=== PATIENT | male | born 2000 | race Caucasian/White ===

== ENCOUNTER 2023-03-23 06:51 | Emergency (ER) | payer MEDICAID, OTHER ==
[2023-03-23 07:03] VITALS: BP 142/105; PULSE 76; O2SAT 96
--- NOTE | 2023-03-23 07:32 | ERPHSYRPT ---
- History of Present Illness Time Seen by Provider: 03/23/23 07:22 Source: patient Exam Limitations: no limitations Patient Subjective Stated Complaint: pt here for a sore throat for a week now, no fever, took tylenol and advil at 0530 this am. Triage Nursing Assessment: pt alert, resp easy, walked in, skin w.d.p. no drooling, throat red, Physician History: This is a 22-year-old white male patient who has had a sore throat for approximately 1 week. He has no known exposures to individuals with similar symptoms or with the diagnosis of flu of any type. He does not have chest pain. He has not having shortness of breath. He does not have a cough. He has no abdominal pain. He has had no nausea vomiting or diarrhea. He has not had a fever. Timing/Duration: week(s) (1) Cough Quality/Degree: no cough Possible Cause: chronic episodes Modifying Factors: Improves With: nothing Associated Symptoms: sore throat, No fever, No chest pain/soreness, No cough, No earache, No shortness of breath Allergies/Adverse Reactions: No Known Drug Allergies Allergy (Unverified 03/23/23 07:03) Hx Tetanus, Diphtheria Vaccination/Date Given: No Hx Influenza Vaccination/Date Given: No Hx Pneumococcal Vaccination/Date Given: No Travel Risk - International Travel Have you traveled outside of the country in past 3 weeks: No - Coronavirus Screening Are you exhibiting any of the following symptoms?: No - Vaccine Status Have you recieved a Covid-19 vaccination: No - Review of Systems Constitutional: No Symptoms Eyes: No Symptoms Ears, Nose, & Throat: Throat Pain Respiratory: No Symptoms Cardiac: No Symptoms Abdominal/Gastrointestinal: No Symptoms Genitourinary Symptoms: No Symptoms Musculoskeletal: No Symptoms Skin: No Symptoms Neurological: No Symptoms Psychological: No Symptoms Endocrine: No Symptoms Hematologic/Lymphatic: No Symptoms Immunological/Allergic: No Symptoms All Other Systems: Reviewed and Negative - Past Medical History Pertinent Past Medical History: No - Past Surgical History Past Surgical History: No - Social History Smoking Status: Never smoker Exposure to second hand smoke: No Drug Use: none Patient Lives Alone: No - Nursing Vital Signs Nursing Vital Signs: Initial Vital Signs Temperature 97.3 F 03/23/23 07:02 Pulse Rate 76 03/23/23 07:02 Respiratory Rate 18 03/23/23 07:02 Blood Pressure 142/105 03/23/23 07:02 O2 Sat by Pulse Oximetry 96 03/23/23 07:02 Pain Scale Pain Intensity 7 - Physical Exam General Appearance: no apparent distress, alert Eye Exam: PERRL/EOMI, eyes nml inspection Ears, Nose, Throat Exam: moist mucous membranes, pharyngeal erythema Neck Exam: normal inspection, non-tender, supple, full range of motion Respiratory Exam: normal breath sounds, lungs clear, No chest tenderness, No respiratory distress Cardiovascular Exam: regular rate/rhythm, normal heart sounds, normal peripheral pulses Gastrointestinal/Abdomen Exam: soft, normal bowel sounds, No tenderness Rectal Exam: not done Extremity Exam: normal inspection, normal range of motion, pelvis stable Neurologic Exam: alert, oriented x 3, cooperative, crop scout II-XII nml as tested, normal mood/affect, nml cerebellar function, nml station & gait, sensation nml Skin Exam: normal color, warm, dry Lymphatic Exam: No adenopathy SpO2 Interpretation: normal SpO2: 96 O2 Delivery: Room Air - Course Nursing assessment & vital signs reviewed: Yes Ordered Tests: Medication Summary Generic Name Dose Route Start Last Admin Trade Name Newtonq PRN Reason Stop Dose Admin Hydrocodone Bitart/Acetaminophen 10 ml 03/23/23 07:39 Hydrocodone/Acetaminophen 5 Ml Udcup PO 03/23/23 07:40 STAT STA Ceftriaxone Sodium 1,000 mg 03/23/23 07:39 Ceftriaxone Sodium 1000 Mg Inj Vial IM 03/23/23 07:40 STAT ONE Methylprednisolone Sodium 0 mg 03/23/23 07:39 Succinate 125 mg/ Sterile IM 03/23/23 07:40 Water 2 ml STAT ONE - Progress Progress: unchanged Air Movement: good Progress Note: 03/23/23 07:34 This patient's medical issue is 1 of low complexity. The level of complexity and the work-up performed is based on review of the patient's past medical history, review of the patient's medication list, review of the patient's drug allergy list, history of present illness and findings on physical examination. No laboratory testing or radiographic studies are necessary. Patient will be given an injection of Rocephin, Solu-Medrol, and 10 mL orally of hydrocodone elixir. Patient will receive a prescription that will be sent remotely to his pharmacy for amoxicillin, prednisone and hydrocodone elixir. Patient is to follow-up with his primary care physician in 48 hours if symptoms persist. Blood Culture(s) Obtained: No Antibiotics given: Yes Counseled pt/family regarding: diagnosis, need for follow-up Medical Desision Making - Independent Historian Additional History obtained from: Spouse - Discussion of managment Agreed on:: Treatment plan - Diagnostic Testing Diagnostic test were ordered, analyzed, and reviewed by me: No - Risk of complications The pt has a mod risk of morbidity or mortality based on: Need for prescription drug management - Departure Departure Disposition: Home Clinical Impression: Pharyngitis Condition: Stable Critical Care Time: No Referrals: JUAN CARLOS SMITH MD [Primary Care Provider] - Follow up/PCP as directed Additional Instructions: Drink plenty of cool liquids. Take your medication as prescribed. Follow-up with your primary care provider for persistent symptoms. Prescriptions: Hydrocodone/Acetaminophen [Hydrocodone-Acetamn 7.5-325/15] 10 ml PO Q8H PRN PRN #120 ml MDD 30 ml PRN Reason: Cough Amoxicillin 500 mg Cap [Amoxil 500 mg] 500 mg PO TID #30 cap Prednisone 10 mg [Deltasone 10 mg] 10 mg PO TID #12 tablet
[2023-03-23] MEDS ORDERED: Rocephin 1000 MG INJ IM ONE (07:39)
[2023-03-23] MEDS ORDERED: solu-MEDROL 125 MG, Sterile H2O 10 ml 2 ML IM ONE ×2 (07:39)
[2023-03-23] MEDS ORDERED: HYDROCODONE-ACETAMIN 2.5-108/5 ML SOLUTION PO STA (07:39)
[2023-03-23] MEDS ORDERED: Sterile H2O 10 ml IJ ONE (07:42)
[2023-03-23] MEDS ORDERED: HYDROCODONE-ACETAMIN 2.5-108/5 ML SOLUTION ONE (07:42)
[2023-03-23] MEDS ORDERED: Rocephin 1000 MG INJ ONE (07:43)
[2023-03-23] MEDS ORDERED: solu-MEDROL ONE (07:43)
[2023-03-23] MEDS ORDERED: XYLOCAINE 1% HCL 20 ML MDV ONE (07:43)
== END 2023-03-23 08:24 | disposition home or self-care (01) ==
LOC: ED 06:51
DX: J02.9 Acute pharyngitis, unspecified (principal); Z20.828 Contact with and (suspected) exposure to other viral communicable diseases
CPT/HCPCS: 96372; 99283; J0696; J2930; A9270-GY